=== PATIENT | female | born 2000 | race Caucasian/White ===

== ENCOUNTER → 2021-04-09 12:47 | Outpatient (CLI) | payer OTHER, SELFPAY ==
--- NOTE | 2021-04-09 12:48 | DI.US.S_ITS ---
PROCEDURE: US EXTREMITY NONVASC UPPER LT INDICATIONS: UNABLE TO PALPATE NEXPLANON CONTRACEPTIVE DEVICE TECHNIQUE: Real-time scanning was performed of the area of current clinical concern, with image documentation. COMPARISON: None. FINDINGS: Within the soft tissues in the area of current concern there is a 3.9 cm linear echogenic structure 7 mm deep to the skin surface. The skin was marked over the area of this linear structure for anticipated subsequent removal. IMPRESSION: Implanted contraceptive device appears to be present within the soft tissues is noted, marked for subsequent removal. Dictated by: Elio Silvestre M.D. on 04/09/2021 at 15:12 Approved by: Elio Silvestre M.D. on 04/09/2021 at 15:13
== END ==
PROVIDERS: PCP Registered Nurse; Referring Provider Obstetrics & Gynecology; Visit Provider Obstetrics & Gynecology
DX: Z30.46 Encounter for surveillance of implantable subdermal contraceptive (principal)
CPT/HCPCS: 76882

== ENCOUNTER → 2021-05-20 12:32 | Outpatient (CLI) | payer OTHER, SELFPAY ==
[2021-05-20 14:13] LABS: COVID19 -Nasal RAPID Negative (Negative)
== END ==
PROVIDERS: PCP Registered Nurse; Visit Provider Obstetrics & Gynecology
DX: Z01.812 Encounter for preprocedural laboratory examination (principal); Z20.822 Contact with and (suspected) exposure to COVID-19
CPT/HCPCS: 87635

== ENCOUNTER 2021-05-21 08:42 | Day surgery (SDC) | payer OTHER, SELFPAY ==
[2021-05-14 12:14] VITALS: BMI 25.9
--- NOTE | 2021-05-21 | DI.US.S_ITS ---
PROCEDURE: US EXTREMITY NONVASC UPPER LT INDICATIONS: NEXPLENON REMOVAL IN OR; ASSIST TECHNIQUE: Real-time scanning was performed of the left upper arm, with image documentation. COMPARISON: None. FINDINGS: Intraoperative imaging provided for localization of Nexplanon device in upper left arm. Device successfully localized and skin marked for surgical removal of Nexplanon device. IMPRESSION: Successful intraoperative ultrasound localization of Nexplanon device in left upper arm. Dictated by: Zoe Birmingham MD, PhD on 05/21/2021 at 12:00 Approved by: Zoe Birmingham MD, PhD on 05/21/2021 at 12:01
[2021-05-21 09:03] VITALS: BMI 25.9
[2021-05-21] MEDS: LACTATED RINGERS 1,000 ML 100 ML IV ×2 (09:29→10:29)
[2021-05-21 09:30] VITALS: BP 104/66; PULSE 77; RESP 16; TEMP 36.8; O2SAT 95
--- NOTE | 2021-05-21 09:54 | PM.HP.1 ---
History of Present Illness History of Present Illness Date Patient Seen: 05/21/21 Time Patient Seen: 09:55 Chief complaint: SDC *$150 copay* Narrative: Patient is a 21-year-old 0 with a nonpalpable Nexplanon on the underside of the left upper arm. She is here for removal under anesthesia and under live ultrasound. Patient History Medical History (Updated 02/12/21 @ 15:37 by TARUN López) Chronic back pain (~2014) Nexplanon in place PTSD (post-traumatic stress disorder) Tonsil and adenoid disease, chronic Vision disorder Family & Social History Family History (Updated 07/30/20 @ 21:54 by Desiree Ponce) Father Diverticulitis Mother Mental health problem Sister Mental health problem Grandmother Diabetes mellitus Mental health problem COPD (chronic obstructive pulmonary disease) Social History: household members significant other Tobacco & Substance use: Smoking Status Never smoker alcohol intake current alcohol intake frequency a few times a month Substance Use Type marijuana Meds Home Medications and Allergies Home Medications Medication Instructions Recorded Confirmed Type No Known Home Medications 05/21/21 05/21/21 History Allergies Allergy/AdvReac Type Severity Reaction Status Date / Time ibuprofen AdvReac Mild Nausea Verified 05/21/21 09:00 Exam Vital Signs (past 8 hours): - 05/21/21 09:30 Temperature 98.3 F Pulse Rate 77 Respiratory Rate 16 Blood Pressure 104/66 Pulse Oximetry 95 Oxygen Delivery Method Room Air Narrative Exam Narrative: HEENT: No thyromegaly, no anterior cervical or supraclavicular lymphadenopathy. Extremities: On the underside of the left upper arm there are 2 scars from Nexplanon insertion. The Nexplanon is not palpable. Lungs:Clear to auscultation bilaterally, no wheezes. Cardiovascular: Regular rate and rhythm, no murmurs, rubs, or gallops. Abdomen: No scars. No hepatosplenomegaly. No masses palpable. External genitalia: Normal Vagina: Normal Cervix: Normal Bimanual exam: 6 Week size uterus. Mobile. Ultrasound: An ultrasound was performed which verified that the Nexplanon is in place. Assessment & Plan Assessment & Plan narrative: Assessment: 21-year-old 0 with a nonpalpable Nexplanon on the underside of the left upper arm Plan: Removal of Nexplanon under direct ultrasound guidance The risks, benefits, and alternatives to the procedure were explained to the patient. The risks including bleeding and infection. She understands these risks and agrees to proceed. A full par Q was held and consent form was signed. COVID-19 COVID-19 status: Negative Result date/Date tested (Pos, Neg/Pending): 05/20/21 Time Spent With Patient Time with patient: less than 15 minutes
--- NOTE | 2021-05-21 09:57 | PM.PREOP ---
Pre-operative Note COVID-19 COVID-19 status: Negative Result date/Date tested (Pos, Neg/Pending): 05/20/21 Interval Note History & Physical reviewed/Exam performed by Physician: Yes Changes to H&P: No H&P completed within 30 days and has changed as indicated here:: 05/21/21
[2021-05-21] MEDS: CEFAZOLIN 1 GM VIAL 2 GM IV (10:15)
--- NOTE | 2021-05-21 10:19 | SUR.OPER ---
Supine on padded OR bed, head on gel donut, arms secured on padded arm boards at <90 degrees abduction, legs uncrossed, safety belt at thigh, tape over blanket over lower legs. Pillow under knees.
[2021-05-21] MEDS: BUPIVACAINE 0.25% W/ EPI 30 ML VIAL INJ (10:30)
[2021-05-21 10:46] VITALS: BP 89/40; PULSE 64; RESP 16; TEMP 36.6; O2SAT 97
--- NOTE | 2021-05-21 10:48 | PM.GYNOP.1 ---
Operative Date/Time/Diagnoses Date of procedure: 05/21/21 Time of procedure: 10:49 Pre-op diagnosis: Nonpalpable Nexplanon Post-op diagnosis: same Procedure & Clinicians Procedure: Procedures Operation Date: 05/21/21 09:45 Actual Procedure Side Surgeon p Nexaplannon Removal with Ultrasound Guidance Left Berenice De Jesus MD Indications: Nonpalpable Nexplanon Surgeon: Berenice De Jesus Anesthesia Type: General (LMA) and Local Operative Notes Findings: Nexplanon approximately 1 cm deep in the underside of the left upper arm Closure Type: primary Specimen(s): none Estimated blood loss (mL): 3 Blood products transfused: none Procedure in detail: After informed consent was obtained, the patient was taken to the operating room where she was placed in the dorsal supine position. After adequate LMA general anesthesia was achieved, she was prepped and draped in the usual sterile fashion on the underside of the left upper arm. With ultrasound guidance, the ends of the Nexplanon were marked on the patient's skin. A 3 mm incision was made through previous insertion site. Using a curved hemostat and direct ultrasound guidance, the end of the Nexplanon was grasped with the hemostat and pulled through the skin. Pressure was held for hemostasis. Surgical glue was used to reapproximate the incision. An Allevyn dressing was placed over the incision. The patient tolerated the procedure well. Complications: none Post-operative Condition: stable Disposition: PACU Plan for aftercare: Home after recovery
[2021-05-21 10:51] VITALS: BP 91/40; PULSE 61; RESP 16; O2SAT 96
[2021-05-21 11:07] VITALS: BP 92/41; PULSE 92; RESP 16; TEMP 36.4; O2SAT 99
[2021-05-21 12:00] VITALS: BP 102/67; PULSE 75; RESP 15; TEMP 36.7; O2SAT 100
--- NOTE | 2021-05-21 15:12 | SUR.PHASEII ---
Late entry: pt left when ready and left in stable condition.
== END 2021-05-21 12:00 | disposition home or self-care (01) ==
PROVIDERS: PCP Registered Nurse; Referring Provider Obstetrics & Gynecology; Visit Provider Obstetrics & Gynecology
PROC: (CPT 11982; principal; 2021-05-21 09:45)
DX: T85.628A Displacement of other specified internal prosthetic devices, implants and grafts, initial encounter (principal)
CPT/HCPCS: 11982; 76882; J0690; J1100; J2405; J2704; J2765; J3010

== ENCOUNTER 2021-06-08 01:40 | Emergency (ER) | payer OTHER, SELFPAY ==
[2021-06-08 01:52] VITALS: BP 135/88; PULSE 124; RESP 28; TEMP 36.7; O2SAT 96; BMI 20.3
[2021-06-08 01:56] VITALS: PULSE 76; PULSE 77; O2SAT 94
[2021-06-08 02:00] VITALS: BP 111/70; PULSE 90; O2SAT 96
--- NOTE | 2021-06-08 02:14 | ED.EXTPRO ---
HPI - Extremity Problem General Chief complaint: Extremity Problem,Nontraumatic Stated complaint: not feeling good feet/legs hurting/spasms in calf Time Seen by Provider: 06/08/21 02:12 Source: patient Mode of arrival: Wheelchair Limitations: no limitations History of Present Illness HPI Narrative: Patient is a 21-year-old female who presents with lower leg cramps ongoing for a few days worse on her right calf than her left. She had a procedure 05/21/2021 to remove the Nexplanon implant in her left arm. She said there was complication and it was intake angled in nerves. She is worried the nerve damage has gone all over. She felt her hands cramping this evening and was having chest discomfort even feeling nauseated. No prior history of panic attack. She denies any fever or chills. No significant swelling of legs. She definitely feels cramps in both legs and feet. No prior history of DVT. She took Tylenol previously to help for pain unable to take Motrin she says upsets her stomach. Related Data Previous Rx's Medication Instructions Recorded cyclobenzaprine 5 mg tablet 5 mg PO TID PRN #10 tab 06/08/21 Allergies Allergy/AdvReac Type Severity Reaction Status Date / Time ibuprofen AdvReac Mild Nausea Verified 05/21/21 09:00 Review of Systems Review of Systems Narrative: GENERAL: Denies chills, fatigue, malaise, fever, sweats, travel HEENT: Denies sinus pain, ear pain, sore throat, difficulty swallowing, neck pain RESPIRATORY: Denies dyspnea, cough, wheezing, hemoptysis, sputum. CARDIOVASCULAR: Denies chest pain, palpitations, orthopnea, edema GASTROINTESTINAL: Denies nausea, vomiting, abdominal pain, diarrhea, constipation, melena. : Denies dysuria, frequency, incontinence, hematuria, urinary retention, flank pain. MUSCULOSKELETAL: See HPI SKIN: No rash, no erythema, no pruritus NEUROLOGIC: Denies weakness, dizziness, headache, numbness, change in speech, confusion PSYCHIATRIC: No concerning psychosocial issues. 12 point review of systems is negative except for those stated above and HPI Patient History Medical History (Updated 06/08/21 @ 03:32 by Sonia Montes DO) Chronic back pain (~2014) Nexplanon in place PTSD (post-traumatic stress disorder) Tonsil and adenoid disease, chronic Vision disorder Family History (Updated 07/30/20 @ 21:54 by Desiree Ponce) Father Diverticulitis Mother Mental health problem Sister Mental health problem Grandmother Diabetes mellitus Mental health problem COPD (chronic obstructive pulmonary disease) Social History household members: significant other Smoking Status: Never smoker second hand exposure: No alcohol intake: current substance use type: marijuana Smoking Status: Never smoker alcohol intake frequency: a few times a month Substance Use Type: marijuana Exam Initial Vital Signs Initial Vital Signs: Vital Signs Temperature 98.1 F 06/08/21 01:52 Pulse Rate 124 H 06/08/21 01:52 Respiratory Rate 28 H 06/08/21 01:52 Blood Pressure 135/88 06/08/21 01:52 Pulse Oximetry 96 06/08/21 01:52 GENERAL: Slightly anxious young 21-year-old female no acute distress HEENT: Head atraumatic,EOMI, pupils reactive, face symmetric, [moist] mucous membranes CARDIOVASCULAR: Regular rate and rhythm without murmurs, rubs or gallops. RESPIRATORY: Breath sounds equal bilaterally, no wheezes rales or rhonchi. ABDOMEN: Soft, nontender. Normoactive bowel sounds all 4 quadrants. No guarding or rebound. EXTREMITIES: Normal range of motion, no clubbing or edema. Neurovascularly intact no significant swelling of lower extremities mild tenderness in right calf no erythema. NEUROLOGICAL: Alert and oriented x4.Normal gait and speech. SKIN: Warm, dry, no laceration, no petechiae, no rashes or lesions. Incision site in left upper arm is healing in no sign of infection Scores Wells' Criteria for DVT Active Cancer (Treatment within 6 months): No Bedridden recently >3 days or major surgery within 4 weeks: No Calf Swelling >3cm compared to other leg: No Collateral (nonvericose) superficial veins present: No Entire leg swollen: No Localized tenderness along the deep vein system: Yes Pitting edema, confined to symtomatic leg: No Paralysis, paresis, or recent plaster immobilization of ext: No Previously documented DVT: No Alternative dx to DVT as likely or more likely: Yes Wells' criteria for DVT: -1 Course Orders Ordered: ED Orders 06/08/21 02:35 Comprehensive Metabolic Panel Stat D Dimer Stat Magnesium Stat Discontinued Medications Cyclobenzaprine HCl (Cyclobenzaprine 10 Mg Prepack) 1 bottle MISC SEEINSTR ONE Stop: 06/08/21 03:33 Last Admin: 06/08/21 03:37 Dose: 1 bottle Documented by: SUAD Ketorolac Tromethamine (Ketorolac 30 Mg/Ml Vial) 30 mg IM NOW ONE Stop: 06/08/21 02:23 Last Admin: 06/08/21 02:29 Dose: 30 mg Documented by: SUAD Vital Signs Vital signs: Vital Signs - 8 hr 06/08/21 01:52 06/08/21 01:56 06/08/21 02:00 Temperature 98.1 F Pulse Rate 124 H 76 90 Respiratory Rate 28 H Blood Pressure 135/88 111/70 Pulse Oximetry 96 94 96 06/08/21 02:30 06/08/21 03:00 06/08/21 03:17 Temperature Pulse Rate 89 71 81 Respiratory Rate Blood Pressure 107/57 L Pulse Oximetry 97 97 97 MDM - Extremity (Nontraumatic) Lab Data Result diagrams: 06/08/21 02:35 Labs: Lab Results 06/08/21 06/08/21 Range/Units 02:35 02:35 D-Dimer 235 H (<230) ng/mL Sodium 138 (137-145) mmol/L Potassium 3.5 (3.4-5.1) mmol/L Chloride 104 (98-107) mmol/L Carbon Dioxide 24 (22-32) mmol/L BUN 9 (7-17) mg/dL Creatinine 0.63 (0.52-1.04) mg/dL Estimated GFR > 60.0 (>60) mL/min BUN/Creatinine Ratio 14.3 (6-22) Glucose 114 H (70-100) mg/dL Calcium 9.5 (8.4-10.2) mg/dL Magnesium 1.9 (1.6-2.3) mg/dL Total Bilirubin 0.6 (0.2-1.3) mg/dL AST 24 (14-36) IU/L ALT 16 (<35) IU/L Alkaline Phosphatase 76 (38-126) U/L Total Protein 7.5 (6.3-8.2) g/dL Albumin 4.4 (3.5-5.0) g/dL Globulin 3.1 (1.7-4.1) g/dL Albumin/Globulin Ratio 1.4 (1.0-2.8) MDM Narrative Medical decision making narrative: Patient is a 21-year-old female who is obviously having anxiety reaction. Since though lower extremity spasming and cramping. Sits in for blood work shows no electrolyte abnormalities. Also with recent hormone use and for seizure possible DVT although low risk for DVT, D-dimer is very slightly positive but I think based on clinical exam and history and unlikely to be DVT. Patient actually sounds as though she is having muscle spasms in her legs which caused an anxiety reaction this evening. Overall feeling significantly better after Toradol. Discharge Plan Departure Patient Disposition: Home Clinical Impression: Muscle spasm of both lower legs Instructions: DI for Muscle Spasm Activity Restrictions/Additional Instructions: *You have been diagnosed with leg spasm *What to do: At this time blood work is overall reassuring. It is highly unlikely that you have a blood clot in her leg. *Continue to take medications as directed--> SENT TO [facility] Flexeril 5-10 mg every 8 hours if needed for muscle spasm recommend starting at 5 mg. This does cause drowsiness, do not take while driving or operating heavy machinery *Follow up with your primary care provider in 2-3 days *Return to ER if you should have increasing leg spasm, swelling, redness or any new, worsening or concerning symptoms Prescriptions: New cyclobenzaprine 5 mg tablet 5 mg PO TID PRN (Reason: muscle spasm) Qty: 10 RF: 0 Referrals: Abimael Bradley ARNP [Primary Care Provider] -
[2021-06-08] MEDS: KETOROLAC 30 MG/ML VIAL IM (02:29)
[2021-06-08 02:30] VITALS: PULSE 89; O2SAT 97
[2021-06-08 02:52] LABS: D Dimer 235 ng/mL (<230)
[2021-06-08 02:53] LABS: Alanine Aminotransferase 16 IU/L (<35); Albumin 4.4 g/dL (3.5-5.0); Albumin Globulin Ratio 1.4 (1.0-2.8); Alkaline Phosphatase 76 U/L (38-126); Aspartate Aminotransferase 24 IU/L (14-36); BUN Creatinine Ratio 14.3 (6-22); Bilirubin Total 0.6 mg/dL (0.2-1.3); Blood Urea Nitrogen 9 mg/dL (7-17); Calcium 9.5 mg/dL (8.4-10.2); Carbon Dioxide 24 mmol/L (22-32); Chloride 104 mmol/L (98-107); Estimated Glomerular Filt Rate > 60.0 mL/min (>60); Globulin 3.1 g/dL (1.7-4.1); Glucose 114 mg/dL (70-100); HEMOLYSIS < 15 (0-50); Magnesium 1.9 mg/dL (1.6-2.3); Potassium 3.5 mmol/L (3.4-5.1); Sodium 138 mmol/L (137-145); Total Protein 7.5 g/dL (6.3-8.2)
[2021-06-08 03:00] VITALS: PULSE 71; O2SAT 97
[2021-06-08 03:17] VITALS: BP 107/57; PULSE 81; O2SAT 97
[2021-06-08] MEDS: CYCLOBENZAPRINE 10 MG PREPACK 1 BOTTLE MISC (03:37)
== END 2021-06-08 03:42 | disposition home or self-care (01) ==
PROVIDERS: Emergency Provider Emergency Medicine; PCP Registered Nurse
DX: M62.838 Other muscle spasm (principal)
CPT/HCPCS: 36415; 80053; 83735; 85379; 96372; 99283; J1885

== ENCOUNTER → 2021-06-18 17:00 | Outpatient (CLI) | payer OTHER, SELFPAY ==
--- NOTE | 2021-06-18 17:02 | DI.RAD.S_ITS ---
PROCEDURE: XR KNEE RT 3V INDICATIONS: right knee pain TECHNIQUE: 3 views of the knee were acquired. COMPARISON: None. FINDINGS: Bones: No fractures or dislocations. No suspicious bony lesions. Soft tissues: No joint effusion. No suspicious soft tissue calcifications. IMPRESSION: Normal for age, source of current right knee pain symptoms is not seen. Dictated by: Elio Silvestre M.D. on 06/19/2021 at 10:45 Approved by: Elio Silvestre M.D. on 06/19/2021 at 10:46
--- NOTE | 2021-06-18 17:02 | DI.RAD.S_ITS ---
PROCEDURE: XR KNEE LT 3V INDICATIONS: left knee pain TECHNIQUE: 3 views of the knee were acquired. COMPARISON: None. FINDINGS: Bones: No fractures or dislocations. No suspicious bony lesions. Soft tissues: No joint effusion. No suspicious soft tissue calcifications. IMPRESSION: No trauma found. Dictated by: Elio Silvestre M.D. on 06/19/2021 at 10:44 Approved by: Elio Silvestre M.D. on 06/19/2021 at 10:45
== END ==
PROVIDERS: PCP Registered Nurse; Referring Provider Registered Nurse; Visit Provider Registered Nurse
DX: M25.562 Pain in left knee (principal); M25.561 Pain in right knee
CPT/HCPCS: 73562